=== PATIENT | female | born 1985 | race Two or more races ===

== ENCOUNTER 2024-09-11 13:56 | Emergency (ER) | payer MEDICAID, OTHER ==
[~2024-09-11] VITALS: Ht 165.1 cm; Wt 85.5 kg
--- NOTE | 2024-09-11 15:06 | ED.PDOC ---
MATERIALS MANAGEMENT MANAGER HPI Comments 38y F who presents to the ED for chief complaint of vaginal bleeding. Pt states she has been having continuous vaginal bleeding for the past 1x month. Pt states since yesterday she had heavy vaginal bleeding and states she passed very large clots. Pt states she started to have cramping diffuse lower abdominal pain with associated diarrhea and chills and came to the ED for further evaluation. Pt states she is currently not as she had prior tubal ligation. Pt states states her menses normally lasts 5 days but states she did have 1 period when her menses was 15 days but otherwise has had normal periods throughout. Pt in the ED has temp of 97.5 F, but otherwise has stable vitals with BP of 129/86, 02 sat 100%, RR 17 and heart rate of 93. Pt otherwise denies any other symptoms at this time. Chief Complaint: Vaginal Bleed Time Seen by MD: 12:45 Reviewed Notes: Medications, Allergies Allergies: Coded Allergies: NO KNOWN ALLERGIES (Unverified , 09/11/24) Information Source: Patient, Relative Mode of Arrival: Ambulatory Brought in by: family member Past Medical History PAST MEDICAL HISTORY: Denies Surgical History: Denies all surgeries PROGRAM MEDICAL DIRECTOR History: No Pertinent PROGRAM MEDICAL DIRECTOR History Family History Family History: Reviewed,noncontributory to illness Social History Smoker: Non-Smoker Alcohol: Denies ETOH Use Drugs: Denies Drug Use Lives In: Home Constitutional: reports: chills; denies: diaphoresis, fatigue, fever, malaise, sweats, weakness, others EENTM: denies: blurred vision, double vision, ear bleeding, ear discharge, ear drainage, ear pain, ear ringing, eye pain, eye redness, hearing loss, mouth pain, mouth swelling, nasal discharge, nose bleeding, nose congestion, nose pain, photophobia, tearing, throat pain, throat swelling, voice changes, others Respiratory: denies: cough, hemoptysis, orthopnea, SOB at rest, shortness of breath, SOB with excertion, stridor, wheezing, others Cardiovascular: denies: chest pain, dizzy spells, diaphoresis, Dyspnea on exertion, edema, irregular heart beat, left arm pain, lightheadedness, palpitations, PND, syncope, others Gastrointestinal: reports: abdominal pain; denies: abdomen distended, blood streaked bowels, constipated, diarrhea, dysphagia, difficulty swallowing, hem atemesis, melena, nausea, poor appetite, poor fluid intake, rectal bleeding, rectal pain, vomiting, others Genitourinary: reports: abnormal vagina bleeding; denies: burning, dyspareunia, dysuria, flank pain, frequency, hematuria, incontinence, pain, , vagina discharge, urgency, others Neurological: denies: dizziness, fainting, headache, left sided numbness, left sided weakness, numbness, paresthesia, pre-existing deficit, right sided n umbness, right sided weakness, seizure, speech problems, tingling, tremors, weakness, others Musculoskeletal: denies: back pain, gout, joint pain, joint swelling, muscle pain, muscle stiffness, neck pain, others Integumetry: denies: bruises, change in color, change in hair/nails, dryness, laceration, lesions, lumps, rash, wounds, others Allergic/Immunocompromised: denies: Difficulty Healing, Frequent Infections, Hives, Itching, others Hematologic/Lymphatic: denies: anemia, blood clots, easy bleeding, easy bruising, swollen glands, others Endocrine: denies: excessive hunger, excessive sweating, excessive thirst, excessive urination, flushing, intolerance to cold, intolerance to heat, unexplained weight gain, unexplained weight loss, others Psychiatric: denies: anxiety, bipolar disorder, depression, hopeless, panic disorder, schizophrenia, sleepless, suicidal, others All Other Systems: Reviewed and Negative Physical Exam General Appearance: No Apparent Distress, Obese HEENT: Other (Pupils and face symmetric. Moist mucous membranes.) Neck: Full Range of Motion, Normal Inspection Respiratory: Lungs Clear, No Accessory Muscle Use, No Respiratory Distress, Normal Breath Sounds Cardiovascular: No Edema, No JVD, Regular Rate/Rhythm Breast Exam: Deferred Gastrointestinal: Non Tender, Soft Genitalia: Deferred Pelvic: Deferred Rectal: Deferred Extremities: Normal inspection, Normal range of motion, Non-tender, No pedal edema Neurologic: Alert (Oriented x4), Normal Affect, Normal Mood, Other (Ambulatory) Cerebellar Function: NOT DONE Reflexes: NOT DONE Skin: Dry, Normal Color, Warm Lymphatic: NOT DONE Was a procedure done? Was a procedure done?: No Differential Diagnosis (PROGRAM MEDICAL DIRECTOR) Vaginal Bleeding: Blood Loss Anemia, Dysmenorrhea, Ectopic , Hormonal, Menorrhagia, Menometrorrhagia, Menstrual Bleeding, Myomatous Uterus, PID, UTI X-Ray, Labs, Meds, VS Vital Signs Date Time Temp Pulse Resp B/P (MAP) Pulse Ox O2 Delivery O2 Flow Rate FiO2 09/11/24 17:03 97.4 84 14 146/66 (92) 100 97.4 09/11/24 17:03 84 14 100 Room Air* 0 21 09/11/24 14:19 97.5 93 17 129/86 (100) 100 97.5 Lab Test 09/11/24 15:20 09/11/24 14:49 Range/Units Urine Color Light-red Yellow Urine Clarity Ex.turbid Clear Urine pH 5.0 5.0-9.0 Urine Specific [place]illi[place] 1.023 1.001-1.035 Urine Protein 1+ H Negative Urine Ketones Trace Negative Urine Blood 3+ H Negative /uL Urine Nitrite Negative Negative Urine Bilirubin Negative Negative Urine Urobilinogen Normal Negative mg/dL Urine Leukocyte Esterase 1+ Negative /uL Urine RBC 7008 0 - 4 /hpf Urine Microscopic WBC 2 0-5 /HPF Urine Squamous Epithelial Cells None seen <5 /hpf Urine Bacteria None seen None Seen /hpf Urine Yeast (Budding) Occasional None Seen /hpf Urine Glucose Normal Normal mg/dL Urine Test Negative Negative White Blood Count 11.2 H 4.4-10.8 10^3/uL Red Blood Count 3.47 L 4.0-5.20 10^6/uL Hemoglobin 9.4 L 12.2-16.2 g/dL Hematocrit 29.2 L 36.0-46.0 % Mean Corpuscular Volume 84.1 80.0-100.0 fL Mean Corpuscular Hemoglobin 27.1 L 28.0-32.0 pg Mean Corpuscular Hemoglobin Concent 32.2 32.0-36.0 g/dL Red Cell Distribution Width 12.9 11.8-14.3 % Platelet Count 473 H 140-450 10^3/uL Mean Platelet Volume 6.2 L 6.9-10.8 fL Neutrophils (%) (Auto) 40.0 37.0-80.0 % Lymphocytes (%) (Auto) 47.3 10.0-50.0 % Monocytes (%) (Auto) 8.1 0.0-12.0 % Eosinophils (%) (Auto) 3.9 0.0-7.0 % Basophils (%) (Auto) 0.7 0.0-2.0 % Neutrophils # (Auto) 4.5 1.6-8.6 10 ^3/uL Lymphocytes # (Auto) 5.3 0.4-5.4 10 ^3/uL Monocytes # (Auto) 0.9 0-1.3 10 ^3/uL Eosinophils # (Auto) 0.4 0-0.8 10 ^3/uL Basophils # (Auto) 0.1 0-0.2 10 ^3/uL Nucleated Red Blood Cells 0.1 % Prothrombin Time 10.8 9.3-11.8 sec Prothrombin Time INR 1.02 0.9-1.15 Activated Partial Thromboplast Time 25.8 24.5-34.5 SEC Sodium Level 138 136-145 mmol/L Potassium Level 3.7 3.5-5.1 mmol/L Chloride Level 105 98-107 mmol/L Carbon Dioxide Level 24 20-31 mmol/L Anion Gap 9 5-15 Blood Urea Nitrogen 10 9-23 mg/dL Creatinine 0.63 0.550-1.02 mg/dL Glomerular Filtration Rate Calc 118 >90 mL/min BUN/Creatinine Ratio 15.9 10.0-20.0 Serum Glucose 98 74-106 mg/dL Calcium Level 9.4 8.7-10.4 mg/dL [place] [address] Ph: [phone] DIAGNOSTIC IMAGING Diagnostic Imaging Report : [id number] Signed PATIENT: ZULAY MURPHY ACCT: [id number] UNIT: [id number] : 1985 LOC: ER ROOM / BED: / AGE / SEX: 38 / F ADM STATUS: REG ER SERVICE 1432 ORDERING PHYSICIAN: MICHAELLE GOMEZ MD PROCEDURE(s): PELUS - PELVIC REASON: vag bleed ORDER NUMBER(s): [id number], ACCESSION NUMBER(s): [id number] INDICATION: vag bleed TECHNIQUE: Multiple real-time grayscale transabdominal transvaginal sonographic images along with color and duplex Doppler of the uterus and ovaries were obtained. COMPARISON: None FINDINGS: The uterus measures 7.4 x 4.2 x 4.9 cm. The endometrial stripe measures 0.11 cm. Small 4 x 8 by 2 mm calcification in the endometrium. The right ovary measures 3.8 x 3.2 x 3.9 cm. 1.8 x 1.9 by 1.6 cm anechoic mass right ovary. The left ovary measures 2.3 x 1.9 x 1.3 cm. cm. Subsequent color and duplex Doppler interrogation of the ovaries demonstrated symmetric vascular flow to both ovaries, though this does not exclude the poss ibility of torsion due to the dual blood supply. IMPRESSION: 1. Grossly unremarkable pelvic ultrasound. 2. Multiple small cysts right ovary largest measures 1.8 x 1.9 x 1.6 cm 3. Small endometrial calcification 4. No IUP. ATED BY: MANDIE MUNGUIA Jr., DO DICTATED DATE/TIME: 09/11/24 1549 SIGNED BY: MANDIE MUNGUIA Jr., SIGNED DATE/TIME: 09/11/24 1549 CC: X-Ray, Labs, Meds, VS Comment 38-year-old female with no significant past medical history complaining of vaginal bleeding for the past month Vitals unremarkable Exam unremarkable Rhythm strip independently interpreted by me: Sinus rhythm, rate 83, no ectopy. Pelvic ultrasound: IMPRESSION: 1. Grossly unremarkable pelvic ultrasound. 2. Multiple small cysts right ovary largest measures 1.8 x 1.9 x 1.6 cm 3. Small endometrial calcification 4. No IUP. CBC remarkable for WBC 11.2, hemoglobin 9.4, hematocrit 29.2, platelets 473, basic metabolic panel, coag panel and urine test unremarkable. UA abnormal consistent with a contaminated specimen rather than UTI Following was ordered for the patient in the ED: Toradol 60 mg IM, Bentyl 20 mg IM On re-evaluation, patient was resting comfortably with stable vitals. She was not in distress. Patient appears stable for discharge with close outpatient follow-up with Gynecology. She will be referred to Dr. Knight. Time of 1ST Reevaluation: 13:45 Reevaluation 1ST: Unchanged Patient Education/Counseling: Diagnosis, Treatment, Need For Follow Up Family Education/Counseling: Diagnosis, Treatment, Need For Follow Up Departure 1 Departure Time of Disposition: 18:26 Impression: Primary Impression: Vaginal bleeding Disposition: 01 HOME / SELF CARE / HOMELESS Condition: Stable Referrals: CON KNIGHT DO Additional Instructions: Your blood tests showed your mildly anemic, however you do not need a blood transfusion. Your ultrasound showed small cysts on your right ovary, which may or may not be the cause of your bleeding. There is no acute treatment needed for this cysts, just routine follow-up with a horse breeder. I have enclosed the report below. I have prescribed medication to help slow down or stop your bleeding, as well as pain medication. Follow-up with an OBGYN in 1-2 days.. I have referred you to Dr. Knight. [place] [address] Ph: [phone] DIAGNOSTIC IMAGING Diagnostic Imaging Report : [id number] Signed PATIENT: ZULAY MURPHY ACCT: [id number] UNIT: [id number] : 1985 LOC: ER ROOM / BED: / AGE / SEX: 38 / F ADM STATUS: REG ER SERVICE 1432 ORDERING PHYSICIAN: MICHAELLE GOMEZ MD PROCEDURE(s): PELUS - PELVIC REASON: vag bleed ORDER NUMBER(s): [id number], ACCESSION NUMBER(s): [id number] INDICATION: vag bleed TECHNIQUE: Multiple real-time grayscale transabdominal transvaginal sonographic images along with color and duplex Doppler of the uterus and ovaries were obtained. COMPARISON: None FINDINGS: The uterus measures 7.4 x 4.2 x 4.9 cm. The endometrial stripe measures 0.11 cm. Small 4 x 8 by 2 mm calcification in the endometrium. The right ovary measures 3.8 x 3.2 x 3.9 cm. 1.8 x 1.9 by 1.6 cm anechoic mass right ovary. The left ovary measures 2.3 x 1.9 x 1.3 cm. cm. Subsequent color and duplex Doppler interrogation of the ovaries demonstrated symmetric vascular flow to both ovaries, though this does not exclude the possibility of torsion due to the dual blood supply. IMPRESSION: 1. Grossly unremarkable pelvic ultrasound. 2. Multiple small cysts right ovary largest measures 1.8 x 1.9 x 1.6 cm 3. Small endometrial calcification 4. No IUP. e-Prescriptions Dicyclomine Hcl (BENTYL CAPSULE) 10 Mg Cp 2 CAP PO Q6HP PRN, #30 CAP 11 Refills Prn abdominal cramping Prov: MICHAELLE GOMEZ MD 09/11/24 Ibuprofen Micronized (Ibuprofen) 800 Mg Tab 800 MG PO Q8HP PRN, #30 TAB Prn pain. Take with food. Prov: MICHAELLE GOMEZ MD 09/11/24 Medroxyprogesterone Acetate (PROVERA) 5 Mg Tab 2 TAB PO DAILY for 10 Days, #20 TAB 11 Refills Prov: MICHAELLE GOMEZ MD 09/11/24 Discharged With: Relative Critical Care Note Critical Care Time?: No Stability Stability form required: No Heart Score Heart Score: Heart Score Response (Comments) Value History N/A 0 EKG N/A 0 Age N/A 0 Risk Factors N/A 0 Troponin N/A 0 Total 0 I personally scribed for MICHAELLE GOEMZ MD (SARAH) on 09/11/24 at 15:06. Electronically submitted by Jalil Coats ([facility] [employer]). I personally scribed for MICHAELLE GOMEZ MD (SARAH) on 09/11/24 at 16:08. Electronically submitted by Jalil Coats ([facility]). MICHAELLE GOMEZ MD Sep 11, 2024 15:06
[2024-09-11 15:14] LABS: Hematocrit 29.2 % (36.0-46.0); Hemoglobin 9.4 g/dL (12.2-16.2); Mean Corpuscular Hemoglobin 27.1 pg (28.0-32.0); Mean Corpuscular Volume 84.1 fL (80.0-100.0); Nucleated Red Blood Cells % 0.1 %
[2024-09-11 15:18] LABS: Chloride 105 mmol/L (98-107); Potassium 3.7 mmol/L (3.5-5.1); Sodium 138 mmol/L (136-145)
[2024-09-11 15:19] LABS: Anion Gap 9 (5-15); Carbon Dioxide 24 mmol/L (20-31)
[2024-09-11 15:20] LABS: Calcium 9.4 mg/dL (8.7-10.4)
[2024-09-11 15:24] LABS: Glucose 98 mg/dL (74-106)
[2024-09-11 15:25] LABS: BUN/Creatinine Ratio 15.9 (10.0-20.0); Blood Urea Nitrogen 10 mg/dL (9-23); INR 1.02 (0.9-1.15); Partial Thromboplastin Time 25.8 SEC (24.5-34.5); Prothrombin Time 10.8 sec (9.3-11.8)
[2024-09-11 15:51] LABS: Urine Budding Yeast OCCASIONAL /hpf (None Seen); Urine Protein, UAD 1+ (Negative)
--- NOTE | 2024-09-11 15:52 | DVH ---
INDICATION: vag bleed TECHNIQUE: Multiple real-time grayscale transabdominal transvaginal sonographic images along with col or and duplex Doppler of the uterus and ovaries were obtained. COMPARISON: None FINDINGS: The uterus measures 7.4 x 4.2 x 4.9 cm. The endometrial stripe measures 0.11 cm. Small 4 x 8 by 2 mm calcification in the endometrium. The right ovary measures 3.8 x 3.2 x 3.9 cm. 1.8 x 1.9 by 1.6 cm anechoic mass right ovary. The left ovary measures 2.3 x 1.9 x 1.3 cm. cm. Subsequent color and duplex Doppler interrogation of the ovaries demonstrated symmetric vascular flow to both ovaries, though this does not exclude the possibility of torsion due to the dual blood suppl y. IMPRESSION: 1. Grossly unremarkable pelvic ultrasound. 2. Multiple small cysts right ovary largest measures 1.8 x 1.9 x 1.6 cm 3. Small endometrial calcification 4. No IUP.
[2024-09-11 17:03] VITALS: BP 146/66; PULSE 84; RESP 14; TEMP 97.4; O2SAT 100
[2024-09-11] MEDS: CELECOXIB 100 MG CAP ONE (17:10)
[2024-09-11] MEDS: ACETAMINOPHEN 500 MG TAB or CAP PO ONE (17:10)
[2024-09-11] MEDS: GABAPENTIN 300 MG CAP ONE (17:10)
[2024-09-11] MEDS ORDERED: KETOROLAC TROMETH 60MG/2ML VIAL IM ONE (18:30)
[2024-09-11] MEDS ORDERED: DICYCLOMINE HCL (10MG/ML) 2 ML AMPULE IM ONE (18:30)
[2024-09-11] MEDS ORDERED: IBUP-1455 PO (18:36)
[2024-09-11] MEDS ORDERED: DICY10CA PO (18:36)
[2024-09-11] MEDS ORDERED: MEDR5TAB28 PO (18:36)
== END 2024-09-11 19:00 | disposition home or self-care (01) ==
LOC: ER 13:56
DX: N93.9 Abnormal uterine and vaginal bleeding, unspecified (principal); R10.30 Lower abdominal pain, unspecified; R19.7 Diarrhea, unspecified
CPT/HCPCS: 36415; 76856; 80048; 81001; 81025; 85025; 85610; 85730